=== PATIENT | male | born 1950 | race Caucasian/White ===

== ENCOUNTER 2023-03-31 09:55 | Outpatient (OUT) | payer MEDICARE, SELFPAY ==
[2023-03-31 10:22] LABS: Basophils Absolute Auto 0.1 10^3/uL (0.0-0.1); Basophils Percent Auto 0.8 % (0.2-2.0); Eosinophils Absolute Auto 0.1 10^3/uL (0.0-0.7); Eosinophils Percent Auto 1.1 % (0.9-7.0); Hemoglobin 15.4 g/dL (14.0-18.0); Lymphocytes Absolute Auto 1.6 10^3/uL (1.2-3.8); Lymphocytes Percent Auto 26.2 % (20.5-60.0); Mean Corpuscular HGB Conc 34.2 g/dL (29.9-35.2); Mean Corpuscular Hemoglobin 29.8 pg (25.9-34.0); Mean Corpuscular Volume 87.2 fL (80.0-94.0); Monocytes Absolute Auto 0.7 10^3/uL (0.3-0.8); Monocytes Percent Auto 10.6 % (1.7-12.0); Neutrophils Absolute Auto 3.8 10^3/uL (1.4-6.5); Neutrophils Percent Auto 61.3 % (43.0-75.0); Platelet Count 184 10^3/uL (150-450); Red Blood Count 5.16 10^6/uL (4.70-6.10); Red Cell Distribution Width 12.4 % (11.0-15.0); White Blood Count 6.2 10^3/uL (4.0-11.0)
[2023-03-31 13:11] LABS: Prostate Specific Antigen Scrn 0.62 ng/mL (<=4.00)
[2023-03-31 13:26] LABS: Alanine Aminotransferase 34 U/L (16-63); Anion Gap 11.2; BUN Creatinine Ratio 15.3; Calcium 8.8 mg/dL (8.5-10.1); Carbon Dioxide 29.1 mmol/L (21.0-32.0); Chloride 103 mmol/L (98-107); Chol HDL Ratio 3.1; Cholesterol 114 mg/dL (<=200); Estimated GFR (African America >60 (>=60); Estimated GFR (Non-African Ame >60 (>=60); Glucose 102 mg/dL (74-106); HDL Cholesterol 37 mg/dL (40-60); Potassium 4.3 mmol/L (3.5-5.1); Sodium 139 mmol/L (136-145); Thyroid Stimulating Hormone 3.789 uIU/mL (0.358-3.740); Triglycerides 97 mg/dL (<=150); VLDL CHOLESTEROL 19.4 mg/dL
== END 2023-03-31 09:56 | disposition home or self-care (01) ==
LOC: LAB 10:06
PROVIDERS: PCP Internal Medicine; Visit Provider Internal Medicine
DX: E78.00 Pure hypercholesterolemia, unspecified (principal); I10 Essential (primary) hypertension; E06.3 Autoimmune thyroiditis; Z12.5 Encounter for screening for malignant neoplasm of prostate; Z79.899 Other long term (current) drug therapy
CPT/HCPCS: 36415; 80048; 80061; 84443; 84460; 85025; G0103

== ENCOUNTER 2024-04-05 09:38 | Outpatient (OUT) | payer MEDICARE, SELFPAY ==
[2024-04-05 10:10] LABS: Basophils Absolute Auto 0.1 10^3/uL (0.0-0.1); Basophils Percent Auto 0.7 % (0.2-2.0); Eosinophils Absolute Auto 0.1 10^3/uL (0.0-0.7); Hematocrit 46.3 % (42.0-54.0); Hemoglobin 15.5 g/dL (14.0-18.0); Immature Granulocytes Abs Auto 0.01 10^3/uL (0.00-0.03); Immature Granulocytes Pct Auto 0.1 % (0.0-0.5); Lymphocytes Absolute Auto 1.7 10^3/uL (1.2-3.8); Lymphocytes Percent Auto 23.1 % (20.5-60.0); Mean Corpuscular HGB Conc 33.5 g/dL (29.9-35.2); Mean Corpuscular Volume 89.7 fL (80.0-94.0); Mean Platelet Volume 9.2 fL (9.5-13.5); Monocytes Absolute Auto 0.6 10^3/uL (0.3-0.8); Monocytes Percent Auto 8.7 % (1.7-12.0); Neutrophils Absolute Auto 4.8 10^3/uL (1.4-6.5); Neutrophils Percent Auto 66.4 % (43.0-75.0); Platelet Count 198 10^3/uL (150-450); Red Blood Count 5.16 10^6/uL (4.70-6.10); Red Cell Distribution Width 12.1 % (11.0-15.0); White Blood Count 7.2 10^3/uL (4.0-11.0)
[2024-04-05 10:41] LABS: Alanine Aminotransferase 42 U/L (16-63); Albumin Level 3.8 g/dL (3.4-5.0); Alkaline Phosphatase 77 U/L (46-116); Anion Gap 10.1; Aspartate Amino Transferase 31 U/L (15-37); BUN Creatinine Ratio 18.3; Bilirubin Total 0.7 mg/dL (0.2-1.0); Calcium 8.9 mg/dL (8.5-10.1); Carbon Dioxide 30.2 mmol/L (21.0-32.0); Chloride 102 mmol/L (98-107); Chol HDL Ratio 3.2; Cholesterol 132 mg/dL (<=200); Estimated GFR (African America >60 (>=60); Estimated GFR (Non-African Ame 60 (>=60); Globulin 3.7 g/dL; Glucose 121 mg/dL (74-106); HDL Cholesterol 41 mg/dL (40-60); LDL Cholesterol Calculated 66.6 mg/dL; Potassium 4.3 mmol/L (3.5-5.1); Sodium 138 mmol/L (136-145); Thyroid Stimulating Hormone 9.399 uIU/mL (0.358-3.740); Total Protein 7.5 g/dL (6.4-8.2); Triglycerides 122 mg/dL (<=150); VLDL CHOLESTEROL 24.4 mg/dL
[2024-04-05 10:49] LABS: Prostate Specific Antigen Scrn 0.75 ng/mL (<=4.00)
== END 2024-04-05 09:39 | disposition home or self-care (01) ==
LOC: LAB 09:40
PROVIDERS: PCP Internal Medicine; Visit Provider Internal Medicine
DX: E03.9 Hypothyroidism, unspecified (principal); E78.00 Pure hypercholesterolemia, unspecified; I10 Essential (primary) hypertension; Z12.5 Encounter for screening for malignant neoplasm of prostate
CPT/HCPCS: 36415; 80053; 80061; 84443; 85025; G0103

== ENCOUNTER 2025-04-11 09:34 | Outpatient (OUT) | payer MEDICARE, SELFPAY ==
--- OUTSIDE RECORDS SUMMARY | 2025-04-11 09:40 | XMS_ITS | Continuity of Care Document ---
Author Organization [facility] Address [address] [place] [address] Phone Allergies, Adverse Reactions, Alerts Allergen Type Severity Reaction Last Updated Verified Status Iodinated Contrast Media Allergy Unknown Unknown Reaction October 11, 2024 9:59am Yes Active Social History Smoking Status Status Start Date End Date Date of Observa tion Ex-smoker (finding) April 10:02am Observation Status Observation Response Date of Response Sex Assigned At Male 1950 Family History Relationship Condition Age at Onset Recorded Date/T [place] father Unknown Diabetes mellitus Unknown Heart disease Unknown mother Malignant neoplasm Unknown Problems Active Problems Medical Problem Onset Date Status Nicotine addiction Unknown Active Primary osteoarthritis of left knee Unknown Active Cerebral atherosclerosis Unknown Active Hypercholesterolemia Unknown Active Hypothyroid Unknown Active IFG (impaired fasting glucose) Unknown A ctive Benign prostatic hyperplasia with lower urinary tract symptoms Unknown Active Left knee pain Unknown Active GERD (gastroesophageal reflux disease) Unknown Active Hypertension Unknown Active Obesity Unknown Active Medications Medication Status Dose Units Route Directions Qty Days St art Date Stop Date End Date Instructions Adherence Atenolol 50 mg tablet Active 50 MG PO Daily December 29, 2023 12:00a m Levothyroxi ne 100 mcg tablet Discont inued 0 .ROUTE .COMPLEX December 29, 2023 6:09pm April 05, 2024 1:36p m TAKE 1 TABLET BY MOUTH EVERY DAY Pantoprazol e 40 mg tablet,jeanne yed release (DR/EC) Discont inued 40 MG PO Daily March 21, 2024 12:00a m March 21, 2024 12:45 pm Pantoprazol e 40 mg tablet,jeanne yed release (DR/EC) Active 0 .ROUTE .COMPLEX March 21, 2024 12:45p m TAKE 1 TABLET BY MOUTH EVERYDAY ON AN EMPTY STOMACH FOLLOWED IN 30 MINUTES BY BREAKFAST 90 Clopidogrel 75 mg tablet Active 0 .ROUTE .COMPLEX March 24, 2024 8:40am TAKE 1 TABLET BY MOUTH EVERY DAY Levothyroxi ne 112 mcg tablet Discont inued 112 MCG PO Daily April 05, 2024 1:35pm April 08, 2024 9:21a m Levothyroxi ne 112 mcg tablet Active 112 MCG PO Daily April 08, 2024 9:21am Atorvastati n 80 mg tablet Active 0 .ROUTE .COMPLEX 90 May 17, 2024 12:55p m TAKE 1 TABLET DAILY IN EVENING Benazepril 20 mg tablet Active 0 .ROUTE .COMPLEX 90 2023 11:17a m TAKE 1 TABLET BY MOUTH EVERY DAY Clopidogrel 75 mg tablet Discont inued 75 MG PO Daily March 24, 2024 12:00a m March 24, 2024 8:40a m Benazepril 20 mg tablet Discont inued 20 MG PO Daily April 05, 2024 12:00a m [facility] 2023 11:17 am Atorvastati n 80 mg tablet Discont inued 80 MG PO Daily at bedtime April 05, 2024 12:00a m Augus 2023 12:55 pm Levothyroxi ne 100 mcg tablet Discont inued 100 MCG PO Daily December 29, 2023 12:00a m December 29, 2023 6:09p m Immunizations Immunization Event Date Not Given Reason Dose Number Chef Lot Number Vaccine Information Statement (VIS) Detail Administration Location [employer] [place], Pediatric Age 5-11 July 24, 2022 COVID-19 mRNA-1273 (Moderna) December 15, 2020 COVID-19 mRNA-1273 (Moderna) January 12, 2021 COVID-19 mRNA-1273 (Moderna) August 08, 2021 COVID-19 mRNA-1273 (Moderna) February 27, 2022 COVID-19 mRNA Bivalent Booster ([employer]) July 24, 2022 influenza, unspecified formulation September 19, 2015 influenza, unspecified formulation August 02, 2016 influenza, unspecified formulation July 22, 2017 influenza, unspecified formulation July 08, 2018 influenza, unspecified formulation May 19, 2020 influenza, unspecified formulation July 02, 2021 influenza, unspecified formulation June 19, 2022 Pneumococcal Conjugate Vaccine, 13 valent August 14, 2016 Pneumococcal Polysacc. Vaccine, 23 valent December 17, 2016 Tetanus, Diphtheria adult, 5 Lf pres free abs October 03, 2013 Advance Directives Advance Directive Response Recorded Date/ Time Advance Directives No October 29, 2023 4:53pm Insurance Providers Guarantor Axel Mae Address [address] [place] [id number] Contact Info. Home Phone: Payer Policy Id Subscriber's Name Subscriber Id Effectiv e Date Expiration Date Medicare [id number] Axel Mae [id number]
[2025-04-11 10:13] LABS: Hematocrit 45.3 % (42.0-54.0); Hemoglobin 15.6 g/dL (14.0-18.0); Immature Granulocytes Abs Auto 0.02 10^3/uL (0.00-0.03); Immature Granulocytes Pct Auto 0.2 % (0.0-0.5); Lymphocytes Absolute Auto 1.7 10^3/uL (1.2-3.8); Mean Corpuscular HGB Conc 34.4 g/dL (29.9-35.2); Mean Corpuscular Hemoglobin 30.6 pg (25.9-34.0); Mean Corpuscular Volume 89.0 fL (80.0-94.0); Platelet Count 194 10^3/uL (150-450); Red Blood Count 5.09 10^6/uL (4.70-6.10); White Blood Count 8.2 10^3/uL (4.0-11.0)
[2025-04-11 10:30] LABS: Alanine Aminotransferase 41 U/L (16-63); Albumin Globulin Ratio 1.1; Albumin Level 3.7 g/dL (3.4-5.0); Alkaline Phosphatase 78 U/L (46-116); Anion Gap 13.4; Aspartate Amino Transferase 33 U/L (15-37); Blood Urea Nitrogen 18.0 mg/dL (7.0-18.0); Calcium 8.7 mg/dL (8.5-10.1); Carbon Dioxide 27.8 mmol/L (21.0-32.0); Chloride 106 mmol/L (98-107); Cholesterol 118 mg/dL (<=200); Estimated GFR (African America >60 (>=60 mL/min/1.73m^2); Estimated GFR (Non-African Ame >60 (>=60 mL/min/1.73m^2); Globulin 3.4 g/dL; Glucose 109 mg/dL (74-106); HDL Cholesterol 41 mg/dL (40-60); Potassium 4.2 mmol/L (3.5-5.1); Sodium 143 mmol/L (136-145); Thyroid Stimulating Hormone 12.804 uIU/mL (0.358-3.740); Total Protein 7.1 g/dL (6.4-8.2); Triglycerides 128 mg/dL (<=150); VLDL CHOLESTEROL 25.6 mg/dL
== END 2025-04-11 09:35 | disposition home or self-care (01) ==
LOC: LAB 09:39
PROVIDERS: PCP Internal Medicine; Visit Provider Internal Medicine
DX: E78.00 Pure hypercholesterolemia, unspecified (principal); R73.01 Impaired fasting glucose; I10 Essential (primary) hypertension; Z12.5 Encounter for screening for malignant neoplasm of prostate; E06.3 Autoimmune thyroiditis
CPT/HCPCS: 36415; 80053; 80061; 84443; 85025; G0103